=== PATIENT | male | born 1995 | race Hispanic/Latino ===

== ENCOUNTER 2017-06-19 11:29 | Emergency (ER) | payer SELFPAY ==
[2017-06-19] MEDS: methylPREDNISolone INJ 125 MG/2 ML VIAL (J2930) IV (12:15)
[2017-06-19] MEDS: IPRATROPIUM 0.5MG/ALBUTEROL 2.5MG INH SOL UD 3ML (DUONEB)(J7620) NEB (12:57)
[2017-06-19] MEDS: ALBUTEROL SULFATE 2.5 MG/0.5 ML INH NEB SOLN NEB (12:57)
[2017-06-19 13:07] LABS: BASO % 0.1 % (0.0-1.0); EOS % 0.6 % (0.0-3.0); HEMATOCRIT 38.9 % (42.0-52.0); HEMOGLOBIN 12.5 g/dl (14.0-18.0); IMMATURE GRANULOCYTE % 0.1 % (0-0); LYMPH # 1.3 10^3/uL (1.5-6.5); LYMPH % 18.5 % (24.0-44.0); MEAN CORPUSCULAR HEMOGLOBIN 27.1 pg (27.0-33.0); MEAN CORPUSCULAR HGB CONC 32.1 g/dl (32.0-36.5); MEAN CORPUSCULAR VOLUME 84.2 fl (80.0-96.0); MONO # 1.4 10^3/uL (0.0-0.8); MONO % 19.7 % (0.0-5.0); NEUTROPHILS # 4.3 10^3/uL (1.8-7.7); PLATELET COUNT, AUTOMATED 267 10^3/uL (150-450); RED BLOOD COUNT 4.62 10^6/uL (4.30-6.10); RED CELL DISTRIBUTION WIDTH 13.7 % (11.5-14.5); WHITE BLOOD COUNT 7.1 10^3/uL (4.0-10.0)
[2017-06-19] MEDS: ALBUTEROL 90 MCG/ACT 8GM HFA INHALER INH (13:15)
[2017-06-19 13:17] LABS: ANION GAP 7 MEQ/L (8-16); BLOOD UREA NITROGEN 8 MG/DL (7-18); CALCIUM LEVEL 8.7 MG/DL (8.5-10.1); CARBON DIOXIDE LEVEL 27 MEQ/L (21-32); CHLORIDE LEVEL 106 MEQ/L (98-107); CREATININE FOR GFR 0.96 MG/DL (0.70-1.30); GLUCOSE, FASTING 92 MG/DL (70-100); POTASSIUM SERUM 3.8 MEQ/L (3.5-5.1); SODIUM LEVEL 140 MEQ/L (136-145)
[2017-06-19 13:48] LABS: INFLUENZA A AMPLIFICATION POSITIVE (NEGATIVE); INFLUENZA B AMPLIFICATION NEGATIVE (NEGATIVE)
== END 2017-06-19 14:21 | disposition home or self-care (01) ==
LOC: M ED 11:29
DX: J10.1 Influenza due to other identified influenza virus with other respiratory manifestations (principal); J45.901 Unspecified asthma with (acute) exacerbation; B34.9 Viral infection, unspecified; I10 Essential (primary) hypertension
CPT/HCPCS: J2930

== ENCOUNTER 2019-05-14 16:06 | Emergency (ER) | payer SELFPAY ==
[~2019-05-14] VITALS: Ht 167.6 cm; Wt 165.0 kg
[~2019-05-14 16:06] MED LIST: ALBU83IN INH; OMEP-172 PO; PRED10TA2 PO; PROAAER10 INH
[2019-05-14] MEDS ORDERED: ALBUTEROL SULFATE 2.5 MG/0.5 ML INH NEB SOLN NEB ONE ×2 (17:00→17:45)
[2019-05-14 17:12] LABS: INFLUENZA A AMPLIFICATION NEGATIVE (NEGATIVE); INFLUENZA B AMPLIFICATION POSITIVE (NEGATIVE)
[2019-05-14] MEDS ORDERED: OSELTAMIVIR PHOSPHATE 75 MG CAP (TAMIFLU) PO ONE (17:45)
[2019-05-14] MEDS ORDERED: predniSONE 20 MG TAB PO ONE (17:45)
[2019-05-14] MEDS ORDERED: ONDANSETRON 4 MG ORAL DISINTEGRATING TAB (Q0162 PER 1MG) PO ONE (17:45)
[2019-05-14] MEDS ORDERED: IBUPROFEN 600 MG TAB PO ONE (17:45)
[2019-05-14] MEDS ORDERED: OSEL75CA PO (18:14)
[2019-05-14] MEDS ORDERED: ALBU83IN NEB (18:14)
[2019-05-14] MEDS ORDERED: PRED20TA PO (18:14)
[2019-05-14] MEDS ORDERED: ONDA4TAB6 PO (18:14)
[2019-05-14 18:34] VITALS: BP 112/55
--- NOTE | 2019-05-14 21:10 | ECGEPIP ---
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
== END 2019-05-14 18:36 | disposition home or self-care (01) ==
LOC: M ED 16:06
DX: J10.1 Influenza due to other identified influenza virus with other respiratory manifestations (principal); R06.02 Shortness of breath; R06.2 Wheezing; R07.89 Other chest pain; R00.0 Tachycardia, unspecified; J45.909 Unspecified asthma, uncomplicated; F12.10 Cannabis abuse, uncomplicated
CPT/HCPCS: 87502; 93005; 99284; Q0162

== ENCOUNTER → 2020-04-30 | Outpatient (CLI) | payer SELFPAY ==
[~2020-04-30] MED LIST changes: +ALBU83IN NEB; -OMEP-172 PO; +OMEP1CAP73 PO; +ONDA4TAB6 PO; +OSEL75CA PO; +PRED20TA PO
== END ==
LOC: M LABSMTC 10:22
PROVIDERS: ATTEND Pediatrics
DX: Z20.828 Contact with and (suspected) exposure to other viral communicable diseases (principal)

== ENCOUNTER → 2020-08-10 | Outpatient (REF) | payer OTHER, SELFPAY ==
[2020-08-10 17:21] LABS: BASO % 0.5 % (0.0-1.0); EOS # 0.5 10^3/uL (0.0-0.5); EOS % 5.2 % (0.0-3.0); HEMOGLOBIN 13.3 g/dl (13.5-17.5); LYMPH # 2.2 10^3/uL (1.5-5.0); LYMPH % 25.1 % (24.0-44.0); MEAN CORPUSCULAR HEMOGLOBIN 27.2 pg (27.0-33.0); MEAN CORPUSCULAR HGB CONC 30.9 g/dl (32.0-36.5); MEAN CORPUSCULAR VOLUME 87.9 fl (80.0-96.0); MONO % 10.8 % (2.0-8.0); NEUTROPHILS # 5.1 10^3/uL (1.5-8.5); NEUTROPHILS % 58.2 % (36.0-66.0); PLATELET COUNT, AUTOMATED 310 10^3/uL (150-450); RED BLOOD COUNT 4.89 10^6/uL (4.30-6.10); WHITE BLOOD COUNT 8.8 10^3/uL (4.0-10.0)
[2020-08-10 17:36] LABS: HEMOGLOBIN A1c 5.6 %
[2020-08-10 17:55] LABS: ALBUMIN 3.6 GM/DL (3.2-5.2); ALT/SGPT 30 U/L (12-78); BILIRUBIN,TOTAL 0.2 MG/DL (0.2-1.0); BLOOD UREA NITROGEN 12 MG/DL (7-18); CALCIUM LEVEL 9.4 MG/DL (8.5-10.1); CARBON DIOXIDE LEVEL 29 MEQ/L (21-32); CHLORIDE LEVEL 107 MEQ/L (98-107); CHOLESTEROL LEVEL 200 MG/DL (<200); CHOLESTEROL RISK RATIO 6.666 (<5); GLOMERULAR FILTRATION RATE > 60.0 (>60); GLUCOSE, FASTING 103 MG/DL (70-100); HDL CHOLESTEROL 30 MG/DL (>40); LDL CHOLESTEROL 122 MG/DL (<100); NON-HDL-C 170 MG/DL; POTASSIUM SERUM 5.1 MEQ/L (3.5-5.1); SODIUM LEVEL 139 MEQ/L (136-145); TOTAL PROTEIN 8.1 GM/DL (6.4-8.2); TRIGLYCERIDES LEVEL 240 MG/DL (<150)
[2020-08-10 17:57] LABS: TOTAL 25(OH) VITAMIN D 9.3 NG/ML (30.0-100.0)
[2020-08-10 18:37] LABS: HEPATITIS C VIRUS ABY INDEX < 0.0 INDEX (<0.8); HIV 1&2 SCREEN CENTAUR NEGATIVE (NEGATIVE)
== END ==
LOC: M LAB REF 16:41
PROVIDERS: ATTEND Nurse Practitioner Family
DX: E66.01 Morbid (severe) obesity due to excess calories (principal); Z13.29 Encounter for screening for other suspected endocrine disorder; Z13.228 Encounter for screening for other metabolic disorders; J45.909 Unspecified asthma, uncomplicated

== ENCOUNTER → 2020-09-06 | Outpatient (REF) | payer OTHER | LOC: M LAB REF 16:13 | PROVIDERS: ATTEND Surgery | DX: L72.3 Sebaceous cyst (principal) ==

== ENCOUNTER 2020-12-28 11:28 | Emergency (ER) | payer OTHER, SELFPAY ==
[~2020-12-28] VITALS: Ht 167.6 cm; Wt 173.5 kg
[2020-12-28 11:38] VITALS: BP 147/79
== END 2020-12-28 15:07 | disposition left against medical advice (07) ==
LOC: M ED 11:28
DX: Z53.21 Procedure and treatment not carried out due to patient leaving prior to being seen by health care provider (principal)

== ENCOUNTER 2021-09-30 03:45 | Emergency (ER) | payer MEDICAID, SELFPAY ==
[~2021-09-30] VITALS: Ht 165.1 cm; Wt 170.8 kg
[2021-09-30] MEDS ORDERED: MORPHINE 4 MG/ML 1ML VIAL/SYRINGE As Ordered ONE (04:06)
[2021-09-30] MEDS: MORPHINE 4 MG/ML 1ML VIAL/SYRINGE IV ONE (04:10)
[2021-09-30 04:15] LABS: ABG BASE EXCESS -0.5 (-2.0-2.0); ABG HCO3 23.3 MEQ/L (22.0-26.0); ABG O2 SATURATION 96.5 % (95.0-99.0); ABG PARTIAL PRESSURE CO2 35.9 mmHg (35.0-45.0); ABG TOTAL CO2 24.4 MEQ/L (22.0-29.0); ABG pH (ARTERIAL) 7.431 UNITS (7.350-7.450)
[2021-09-30] MEDS: HYDROMORPHONE HCL 0.5 MG/ 0.5 ML SYRINGE (J1170 PER 1) IV ONE ×2 (04:25→05:45)
[2021-09-30 04:29] LABS: BASO # 0.1 10^3/uL (0.0-0.2); BASO % 0.2 % (0.0-1.0); EOS # 0.3 10^3/uL (0.0-0.5); EOS % 1.1 % (0.0-3.0); HEMATOCRIT 38.6 % (42.0-52.0); HEMOGLOBIN 12.5 g/dl (13.5-17.5); LYMPH # 3.5 10^3/uL (1.5-5.0); LYMPH % 14.4 % (24.0-44.0); MEAN CORPUSCULAR HEMOGLOBIN 27.2 pg (27.0-33.0); MEAN CORPUSCULAR HGB CONC 32.4 g/dl (32.0-36.5); MEAN CORPUSCULAR VOLUME 84.1 fl (80.0-96.0); MONO % 7.1 % (2.0-8.0); NEUTROPHILS # 18.8 10^3/uL (1.5-8.5); NEUTROPHILS % 76.8 % (36.0-66.0); PLATELET COUNT, AUTOMATED 369 10^3/uL (150-450); RED BLOOD COUNT 4.59 10^6/uL (4.30-6.10); WHITE BLOOD COUNT 24.5 10^3/uL (4.0-10.0)
[2021-09-30 04:42] LABS: INR 1.01; PROTHROMBIN TIME 13.7 SECONDS (12.7-14.5)
[2021-09-30 04:44] LABS: MONO # 1.8 10^3/uL (0.0-0.8)
[2021-09-30 04:53] LABS: CK-MB VALUE MASS < 1.0 NG/ML (<3.6); CPK CREATINE PHOSPHOKINASE 171 U/L (39-308); MB/CK RELATIVE INDEX 0.58 (< OR =4)
[2021-09-30 04:58] LABS: ALBUMIN 3.7 GM/DL (3.2-5.2); ALT/SGPT 32 U/L (12-78); AMYLASE 61 U/L (25-115); BILIRUBIN,DIRECT 0.1 MG/DL (0.0-0.2); BILIRUBIN,TOTAL 0.3 MG/DL (0.2-1.0); BLOOD UREA NITROGEN 13 MG/DL (7-18); CALCIUM LEVEL 8.9 MG/DL (8.5-10.1); CARBON DIOXIDE LEVEL 25 MEQ/L (21-32); CHLORIDE LEVEL 109 MEQ/L (98-107); CREATININE FOR GFR 1.08 MG/DL (0.70-1.30); GLOMERULAR FILTRATION RATE > 60.0 (>60); GLUCOSE, FASTING 116 MG/DL (70-100); LIPASE 90 U/L (73-393); NT-PRO BNP 19 PG/ML (<125); POTASSIUM SERUM 4.3 MEQ/L (3.5-5.1); SODIUM LEVEL 139 MEQ/L (136-145); TOTAL PROTEIN 8.3 GM/DL (6.4-8.2)
[2021-09-30] MEDS ORDERED: ISOVUE-370 76% 100ML VIAL As Ordered ONE (05:18)
[2021-09-30] MEDS: ACETAMINOPHEN 500 MG TAB PO ONE (05:45)
[2021-09-30 07:15] VITALS: BP 145/63
[2021-09-30] MEDS ORDERED: DOXY-342 PO (07:18)
[2021-09-30] MEDS: DOXYCYCLINE HYCLATE 100MG TABLET PO ONE (07:20)
== END 2021-09-30 07:45 | disposition home or self-care (01) ==
LOC: M ED 03:45
DX: J18.1 Lobar pneumonia, unspecified organism (principal); F17.290 Nicotine dependence, other tobacco product, uncomplicated
CPT/HCPCS: 36600; 71045; 71275; 74177; 80048; 80076; 82150; 82550; 82553; 82803; 83605; 83690; 83880; 85025; 85610; 87040; 87486; 87581; 87633; 87798; 93005; 93041; 96374; 96375; 96376; 99285; J1170; J2270; Q9967

== ENCOUNTER 2021-11-20 03:06 | Emergency (ER) | payer OTHER ==
[~2021-11-20] VITALS: Ht 165.1 cm; Wt 154.6 kg
[~2021-11-20 03:06] MED LIST changes: +ALBU2.5V10 INH; +ALBU2.5V10 NEB; -ALBU83IN INH; -ALBU83IN NEB; +DOXY-342 PO
[2021-11-20] MEDS ORDERED: ALBU8.5H (03:19)
[2021-11-20 03:39] LABS: BASO # 0.1 10^3/uL (0.0-0.2); BASO % 0.3 % (0.0-1.0); EOS # 0.2 10^3/uL (0.0-0.5); HEMATOCRIT 40.5 % (42.0-52.0); HEMOGLOBIN 12.9 g/dl (13.5-17.5); LYMPH # 2.8 10^3/uL (1.5-5.0); LYMPH % 16.3 % (24.0-44.0); MEAN CORPUSCULAR HEMOGLOBIN 27.6 pg (27.0-33.0); MEAN CORPUSCULAR HGB CONC 31.9 g/dl (32.0-36.5); MEAN CORPUSCULAR VOLUME 86.5 fl (80.0-96.0); MONO # 1.2 10^3/uL (0.0-0.8); MONO % 7.2 % (2.0-8.0); NEUTROPHILS # 12.6 10^3/uL (1.5-8.5); NEUTROPHILS % 74.7 % (36.0-66.0); PLATELET COUNT, AUTOMATED 383 10^3/uL (150-450); RED BLOOD COUNT 4.68 10^6/uL (4.30-6.10); WHITE BLOOD COUNT 16.9 10^3/uL (4.0-10.0)
[2021-11-20 03:51] LABS: ALBUMIN 3.7 GM/DL (3.2-5.2); ALT/SGPT 173 U/L (12-78); BILIRUBIN,DIRECT < 0.1 MG/DL (0.0-0.2); BILIRUBIN,TOTAL 0.3 MG/DL (0.2-1.0); BLOOD UREA NITROGEN 12 MG/DL (7-18); CALCIUM LEVEL 9.3 MG/DL (8.5-10.1); CARBON DIOXIDE LEVEL 23 MEQ/L (21-32); CHLORIDE LEVEL 109 MEQ/L (98-107); CREATININE FOR GFR 1.29 MG/DL (0.70-1.30); GLOMERULAR FILTRATION RATE > 60.0 (>60); GLUCOSE, FASTING 121 MG/DL (70-100); SODIUM LEVEL 143 MEQ/L (136-145); TOTAL PROTEIN 8.5 GM/DL (6.4-8.2)
[2021-11-20 03:52] LABS: ABG BASE EXCESS -0.9 (-2.0-2.0); ABG HCO3 24.9 MEQ/L (22.0-26.0); ABG PARTIAL PRESSURE CO2 45.6 mmHg (35.0-45.0); ABG STANDARD HCO3 23.7 MEQ/L (22.0-26.0); ABG TOTAL CO2 26.3 MEQ/L (22.0-29.0); ABG pH (ARTERIAL) 7.355 UNITS (7.350-7.450)
[2021-11-20 04:08] LABS: CK-MB VALUE MASS < 1.0 NG/ML (<3.6); CPK CREATINE PHOSPHOKINASE 193 U/L (39-308); MB/CK RELATIVE INDEX 0.52 (< OR =4)
[2021-11-20] MEDS ORDERED: ISOVUE-370 76% 100ML VIAL As Ordered ONE (04:46)
[2021-11-20 07:15] VITALS: BP 115/60
[2021-11-20] MEDS ORDERED: PRED20TA PO (07:33)
== END 2021-11-20 07:52 | disposition home or self-care (01) ==
LOC: EDBD 03:06 → M ED 03:06
DX: R06.02 Shortness of breath (principal); J45.909 Unspecified asthma, uncomplicated
CPT/HCPCS: 36600; 71045; 71275; 80048; 80076; 82550; 82553; 82803; 83605; 85025; 87486; 87581; 87633; 87798; 93005; 93041; 94760; 99285; Q9967

== ENCOUNTER → 2022-03-28 | Outpatient (REF) | payer OTHER, MEDICAID ==
[~2022-03-28] MED LIST changes: +ALBU8.5H; -DOXY-342 PO; +DOXY100C81 PO
[2022-03-28 17:38] LABS: BASO % 0.4 % (0.0-1.0); EOS # 0.3 10^3/uL (0.0-0.5); HEMATOCRIT 41.2 % (42.0-52.0); HEMOGLOBIN 12.9 g/dl (13.5-17.5); LYMPH # 2.3 10^3/uL (1.5-5.0); LYMPH % 22.7 % (24.0-44.0); MEAN CORPUSCULAR HEMOGLOBIN 26.9 pg (27.0-33.0); MEAN CORPUSCULAR HGB CONC 31.3 g/dl (32.0-36.5); MEAN CORPUSCULAR VOLUME 85.8 fl (80.0-96.0); MONO # 0.9 10^3/uL (0.0-0.8); MONO % 8.6 % (2.0-8.0); NEUTROPHILS # 6.6 10^3/uL (1.5-8.5); PLATELET COUNT, AUTOMATED 364 10^3/uL (150-450); WHITE BLOOD COUNT 10.2 10^3/uL (4.0-10.0)
[2022-03-28 18:29] LABS: ALBUMIN 3.5 GM/DL (3.2-5.2); ALT/SGPT 37 U/L (12-78); BILIRUBIN,TOTAL 0.2 MG/DL (0.2-1.0); BLOOD UREA NITROGEN 9 MG/DL (7-18); CALCIUM LEVEL 9.3 MG/DL (8.5-10.1); CARBON DIOXIDE LEVEL 28 MEQ/L (21-32); CHLORIDE LEVEL 105 MEQ/L (98-107); CHOLESTEROL LEVEL 173 MG/DL (<200); CREATININE FOR GFR 0.96 MG/DL (0.70-1.30); GLOMERULAR FILTRATION RATE > 60.0 (>60); GLUCOSE, FASTING 96 MG/DL (70-100); HDL CHOLESTEROL 25 MG/DL (>40); LDL CHOLESTEROL 99 MG/DL (<100); NON-HDL-C 148 MG/DL; POTASSIUM SERUM 4.8 MEQ/L (3.5-5.1); SODIUM LEVEL 137 MEQ/L (136-145); TOTAL PROTEIN 8.3 GM/DL (6.4-8.2); TRIGLYCERIDES LEVEL 244 MG/DL (<150)
[2022-03-28 18:59] LABS: TOTAL 25(OH) VITAMIN D 10.9 NG/ML (30.0-100.0)
== END ==
LOC: M LAB REF 16:39
PROVIDERS: ATTEND Nurse Practitioner Family
DX: E66.01 Morbid (severe) obesity due to excess calories (principal)

== ENCOUNTER → 2022-06-27 | Outpatient (REF) | payer OTHER ==
[2022-06-27 18:14] LABS: CHOLESTEROL RISK RATIO 5.93 (<5); HDL CHOLESTEROL 29.8 MG/DL (>40)
[2022-06-27 18:39] LABS: HEMOGLOBIN A1c 5.7 % (4.0-6.0)
== END ==
LOC: M LAB REF 16:37
PROVIDERS: ATTEND Nurse Practitioner Family
DX: Z13.228 Encounter for screening for other metabolic disorders (principal); R79.89 Other specified abnormal findings of blood chemistry

== ENCOUNTER → 2022-07-06 | Outpatient (CLI) | payer OTHER | LOC: M SLEEP 20:00 | PROVIDERS: ATTEND Internal Medicine Pulmonary Disease | DX: G47.33 Obstructive sleep apnea (adult) (pediatric) (principal) ==

== ENCOUNTER → 2022-07-16 | Outpatient (CLI) | payer OTHER ==
[2022-07-16 14:29] LABS: BASO % 0.3 % (0.0-1.0); EOS # 0.5 10^3/uL (0.0-0.5); EOS % 5.2 % (0.0-3.0); HEMOGLOBIN 13.6 g/dl (13.5-17.5); LYMPH # 2.3 10^3/uL (1.5-5.0); LYMPH % 25.8 % (24.0-44.0); MEAN CORPUSCULAR HEMOGLOBIN 26.8 pg (27.0-33.0); MEAN CORPUSCULAR HGB CONC 30.9 g/dl (32.0-36.5); MEAN CORPUSCULAR VOLUME 86.6 fl (80.0-96.0); MONO # 0.7 10^3/uL (0.0-0.8); MONO % 8.1 % (2.0-8.0); NEUTROPHILS # 5.5 10^3/uL (1.5-8.5); NEUTROPHILS % 60.4 % (36.0-66.0); PLATELET COUNT, AUTOMATED 363 10^3/uL (150-450); RED BLOOD COUNT 5.08 10^6/uL (4.30-6.10); WHITE BLOOD COUNT 9.1 10^3/uL (4.0-10.0)
== END ==
LOC: M LAB 13:36
PROVIDERS: ATTEND Internal Medicine Pulmonary Disease
DX: J45.40 Moderate persistent asthma, uncomplicated (principal)

== ENCOUNTER → 2022-10-03 | Outpatient (REF) | payer OTHER ==
[2022-10-03 17:15] LABS: BASO % 0.3 % (0.0-1.0); EOS # 0.4 10^3/uL (0.0-0.5); EOS % 3.6 % (0.0-3.0); HEMATOCRIT 43.5 % (42.0-52.0); HEMOGLOBIN 13.4 g/dl (13.5-17.5); LYMPH # 2.7 10^3/uL (1.5-5.0); LYMPH % 26.4 % (24.0-44.0); MEAN CORPUSCULAR HEMOGLOBIN 26.9 pg (27.0-33.0); MEAN CORPUSCULAR HGB CONC 30.8 g/dl (32.0-36.5); MEAN CORPUSCULAR VOLUME 87.3 fl (80.0-96.0); MONO % 9.5 % (2.0-8.0); NEUTROPHILS % 59.9 % (36.0-66.0); PLATELET COUNT, AUTOMATED 364 10^3/uL (150-450); RED BLOOD COUNT 4.98 10^6/uL (4.30-6.10)
[2022-10-03 17:40] LABS: URIC ACID 9.7 MG/DL (3.7-9.2)
[2022-10-03 17:43] LABS: CHOLESTEROL RISK RATIO 7.14 (<5); HDL CHOLESTEROL 24.2 MG/DL (>40); NON-HDL-C 148.8 MG/DL
== END ==
LOC: M LAB REF 16:31
PROVIDERS: ATTEND Nurse Practitioner Family
DX: M10.9 Gout, unspecified (principal); R79.89 Other specified abnormal findings of blood chemistry

== ENCOUNTER 2023-09-20 11:35 | Inpatient (IN) | payer OTHER ==
[~2023-09-20] VITALS: Ht 167.6 cm; Wt 165.6 kg
[~2023-09-20 11:35] MED LIST changes: -ALBU8.5H; +ALBU8.5H INH; -DOXY100C81 PO; +DOXY100C82 PO
[2023-09-20 12:29] LABS: BASO % 0.3 % (0.0-1.0); EOS # 0.1 10^3/uL (0.0-0.5); EOS % 1.2 % (0.0-3.0); HEMOGLOBIN 13.9 g/dl (13.5-17.5); LYMPH # 1.2 10^3/uL (1.5-5.0); LYMPH % 10.3 % (24.0-44.0); MEAN CORPUSCULAR HEMOGLOBIN 27.6 pg (27.0-33.0); MEAN CORPUSCULAR HGB CONC 33.1 g/dl (32.0-36.5); MEAN CORPUSCULAR VOLUME 83.5 fl (80.0-96.0); MONO # 1.8 10^3/uL (0.0-0.8); MONO % 15.7 % (2.0-8.0); NEUTROPHILS # 8.1 10^3/uL (1.5-8.5); NEUTROPHILS % 72.2 % (36.0-66.0); PLATELET COUNT, AUTOMATED 338 10^3/uL (150-450); RED BLOOD COUNT 5.03 10^6/uL (4.30-6.10); WHITE BLOOD COUNT 11.2 10^3/uL (4.0-10.0)
[2023-09-20 12:52] LABS: CK-MB VALUE MASS < 1.0 NG/ML (<3.6)
[2023-09-20 12:54] LABS: ALBUMIN 3.8 G/DL (3.2-5.2); ALKALINE PHOSPHATASE 94 U/L (46-116); ALT/SGPT 19 U/L (7.0-40); AST/SGOT 10 U/L (<34); BILIRUBIN,DIRECT 0.2 MG/DL (<0.4); BILIRUBIN,TOTAL 0.7 MG/DL (0.3-1.2); BLOOD UREA NITROGEN 10 MG/DL (9-23); CALCIUM LEVEL 9.6 MG/DL (8.5-10.1); CARBON DIOXIDE LEVEL 25 MMOL/L (20-31); CHLORIDE LEVEL 105 MMOL/L (98-107); CREATININE FOR GFR 0.93 MG/DL (0.70-1.30); GLOMERULAR FILTRATION RATE > 60.0 (>60); GLUCOSE, FASTING 107 MG/DL (60-100); POTASSIUM SERUM 3.8 MMOL/L (3.5-5.1); SODIUM LEVEL 139 MMOL/L (136-145); TOTAL PROTEIN 8.9 G/DL (5.7-8.2)
[2023-09-20 12:55] LABS: CPK CREATINE PHOSPHOKINASE 97 U/L (46-171); MB/CK RELATIVE INDEX 1.03 (< OR =4)
[2023-09-20 13:02] LABS: INR 1.18; PROTHROMBIN TIME 14.7 SECONDS (12.5-14.5)
[2023-09-20] MEDS: IPRATROPIUM 0.5MG/ALBUTEROL 2.5MG INH SOL UD 3ML (DUONEB) NEB PRN (13:03)
[2023-09-20 13:05] LABS: ABG BASE EXCESS -0.3 (-2.0-2.0); ABG HCO3 22.5 MMOL/L (22.0-26.0); ABG O2 SATURATION 93.6 % (95.0-99.0); ABG PARTIAL PRESSURE CO2 32.2 mmHg (35.0-45.0); ABG PARTIAL PRESSURE O2 65.7 mmHg (75.0-100.0); ABG STANDARD HCO3 24.1 MMOL/L. (22.0-26.0); ABG TOTAL CO2 23.5 MMOL/L (22.0-29.0); ABG pH (ARTERIAL) 7.463 UNITS (7.350-7.450)
[2023-09-20] MEDS ORDERED: ISOVUE-370 76% 100ML VIAL As Ordered ONE (13:08)
[2023-09-20 14:27] LABS: CK-MB VALUE MASS < 1.0 NG/ML (<3.6)
[2023-09-20 14:29] LABS: CPK CREATINE PHOSPHOKINASE 95 U/L (46-171); MB/CK RELATIVE INDEX 1.05 (< OR =4)
[2023-09-20] MEDS ORDERED: AUGMENTIN 875 MG TAB PO ONE (15:15)
[2023-09-20 15:23] LABS: PARTIAL THROMBOPLASTIN TIME 34.2 SECONDS (24.8-34.2)
[2023-09-20] MEDS ORDERED: HOME MED LIST COMPLETE! XX SCH (15:25)
[2023-09-20] MEDS ORDERED: ALBU2.5V10 INH (15:25)
[2023-09-20] MEDS ORDERED: ONDANSETRON 4MG 2ML VIAL IV PRN (16:00)
[2023-09-20] MEDS ORDERED: ACETAMINOPHEN TAB 650MG DOSE (2X325MG) PO PRN (16:00)
[2023-09-20] MEDS: APIXABAN 5 MG TAB (ELIQUIS) PO SCH (16:22)
[2023-09-20] MEDS: MONTELUKAST 10 MG TAB PO ONE (16:22)
[2023-09-20] MEDS: cefTRIAXone SOD 2 GM in D5W MINI-BAG PLUS 50 ML IV SCH (16:23)
[2023-09-20] MEDS: methylPREDNISolone 125MG 2ML VIAL IV ONE (16:23)
[2023-09-20] MEDS: LEVALBUTEROL 1.25MG 0.5ML CONCENTRATE NEB INH SCH (16:28)
[2023-09-20 17:04] LABS: MONO SCRN NEGATIVE (NEGATIVE)
[2023-09-20 17:50] VITALS: BP 161/85; TEMP 97.3; O2SAT 90
[2023-09-20] MEDS: FLUTICASONE PROP 0.05% NASAL SPRAY 16 GM (FLONASE) NARES SCH (18:07)
[2023-09-20] MEDS: OXYMETAZOLINE 0.05% NASAL SPRAY (AFRIN) SCH (18:07)
[2023-09-20] MEDS: FLUTICASONE HFA 110MCG 12GM INHALER (FLOVENT) INH SCH (19:06)
[2023-09-20 19:45] VITALS: BP 156/96; TEMP 97.1; O2SAT 95
[2023-09-20] MEDS: CHLORASEPTIC SPRAY MT SCH (20:26)
[2023-09-20] MEDS: methylPREDNISolone 125MG 2ML VIAL IV SCH (20:27)
[2023-09-20] MEDS: guaiFENesin ER TABLET 600 MG TAB PO SCH (20:27)
[2023-09-20 23:42] VITALS: BP 138/97; TEMP 97.9; O2SAT 93
[2023-09-21] MEDS: LEVALBUTEROL 1.25MG 0.5ML CONCENTRATE NEB INH PRN (01:49)
[2023-09-21] MEDS: CALCIUM CARBONATE 500 MG CHEW U/D PO ONE (03:30)
[2023-09-21 03:39] VITALS: BP 143/81; TEMP 97.9; O2SAT 94
[2023-09-21 05:12] LABS: CHOLESTEROL RISK RATIO 7.36 (<5); HDL CHOLESTEROL 28.1 MG/DL (>40); LDL CHOLESTEROL 159.9 MG/DL (<100); NON-HDL-C 178.9 MG/DL
[2023-09-21 05:15] LABS: THYROID STIMULATING HORMONE 1.19 uIU/ML (0.55-4.78)
[2023-09-21 05:20] LABS: THYROXINE (T4) 10.9 UG/DL (4.5-10.9)
[2023-09-21 05:21] LABS: FREE THYROXINE INDEX 4.1 % (1.4-3.8); T UPTAKE 37.5 % (22.5-37.0)
[2023-09-21 05:44] LABS: HEMOGLOBIN A1c 5.2 % (4.0-6.0)
[2023-09-21 06:44] VITALS: BP 153/98; TEMP 97.5; O2SAT 92
[2023-09-21 07:38] VITALS: BP 128/77; TEMP 97.6; O2SAT 95
[2023-09-21] MEDS ORDERED: MAALOX 30 ML SUSP *UDC PO PRN (08:10)
[2023-09-21] MEDS: SUCRALFATE SUSP 1GM/10ML UD PO SCH (09:01)
[2023-09-21] MEDS: OMEPRAZOLE 20MG CAP PO SCH (09:01)
[2023-09-21] MEDS: MAALOX 30 ML SUSP *UDC PO ONE (09:02)
[2023-09-21] MEDS: MONTELUKAST 10 MG TAB PO SCH (09:02)
[2023-09-21] MEDS: methylPREDNISolone 125MG 2ML VIAL IV ONE (12:39)
[2023-09-21 16:18] VITALS: BP 143/69; TEMP 98; O2SAT 92
[2023-09-21 19:49] VITALS: BP 159/94; TEMP 98.1; O2SAT 94
[2023-09-21] MEDS: predniSONE 20 MG TAB PO SCH (20:21)
[2023-09-22 03:57] VITALS: BP 136/77; TEMP 98.3; O2SAT 96
[2023-09-22 07:47] VITALS: BP 158/87; TEMP 97.8; O2SAT 98
[2023-09-22] MEDS: methylPREDNISolone 125MG 2ML VIAL IV ONE (08:49)
[2023-09-22] MEDS: IPRATROPIUM 0.5MG/ALBUTEROL 2.5MG INH SOL UD 3ML (DUONEB) NEB ONE (10:35)
[2023-09-22] MEDS ORDERED: MOM 30ML SUSPENSION UDC PO PRN (10:55)
[2023-09-22] MEDS ORDERED: FLEET ENEMA PR PRN (10:55)
[2023-09-22] MEDS ORDERED: SENOKOT S TAB PO PRN (10:55)
[2023-09-22] MEDS: SENOKOT S TAB PO ONE (11:09)
[2023-09-22] MEDS: MIRALAX *UNIT DOSE* 17GM PACKET PO SCH (11:09)
[2023-09-22] MEDS: MOM 30ML SUSPENSION UDC PO SCH (11:09)
[2023-09-22] MEDS: methylPREDNISolone 125MG 2ML VIAL IV SCH (15:01)
[2023-09-22 16:00] VITALS: BP 137/69; TEMP 98.2; O2SAT 95
[2023-09-22 19:35] VITALS: BP 141/81; TEMP 98.1; O2SAT 96
[2023-09-22] MEDS ORDERED: CHLORASEPTIC SPRAY MT PRN (21:00)
[2023-09-22 23:19] VITALS: BP 141/85; TEMP 97.8; O2SAT 100
[2023-09-23 03:32] VITALS: BP 127/69; TEMP 97.2; O2SAT 100
[2023-09-23 07:09] VITALS: BP 140/81; TEMP 97; O2SAT 95
[2023-09-23 12:10] VITALS: BP 138/83; TEMP 98.3; O2SAT 92
[2023-09-23] MEDS: CEFDINIR 300 MG CAP (OMNICEF) PO SCH (13:51)
[2023-09-23 18:54] VITALS: BP 144/74; TEMP 98.5; O2SAT 92
[2023-09-24 03:56] VITALS: BP 140/84; TEMP 96.8; O2SAT 100
[2023-09-24 07:55] VITALS: BP 147/82; TEMP 97; O2SAT 95
[2023-09-24 08:13] LABS: BASO % 0.2 % (0.0-1.0); HEMATOCRIT 43.5 % (42.0-52.0); HEMOGLOBIN 14.2 g/dl (13.5-17.5); LYMPH # 1.5 10^3/uL (1.5-5.0); LYMPH % 8.3 % (24.0-44.0); MEAN CORPUSCULAR HEMOGLOBIN 27.7 pg (27.0-33.0); MEAN CORPUSCULAR HGB CONC 32.6 g/dl (32.0-36.5); MEAN CORPUSCULAR VOLUME 84.8 fl (80.0-96.0); MONO # 1.3 10^3/uL (0.0-0.8); MONO % 7.1 % (2.0-8.0); NEUTROPHILS # 15.6 10^3/uL (1.5-8.5); NEUTROPHILS % 83.7 % (36.0-66.0); PLATELET COUNT, AUTOMATED 356 10^3/uL (150-450); RED BLOOD COUNT 5.13 10^6/uL (4.30-6.10); WHITE BLOOD COUNT 18.6 10^3/uL (4.0-10.0)
[2023-09-24 08:41] LABS: BLOOD UREA NITROGEN 19 MG/DL (9-23); CALCIUM LEVEL 9.2 MG/DL (8.5-10.1); CARBON DIOXIDE LEVEL 25 MMOL/L (20-31); CHLORIDE LEVEL 106 MMOL/L (98-107); CREATININE FOR GFR 0.89 MG/DL (0.70-1.30); GLOMERULAR FILTRATION RATE > 60.0 (>60); GLUCOSE, FASTING 181 MG/DL (60-100); MAGNESIUM LEVEL 2.2 MG/DL (1.8-2.4); PHOSPHORUS LEVEL 3.7 MG/DL (2.5-4.9); POTASSIUM SERUM 4.7 MMOL/L (3.5-5.1); SODIUM LEVEL 139 MMOL/L (136-145)
[2023-09-24 16:03] VITALS: BP 148/90; TEMP 97.5; O2SAT 98
[2023-09-24] MEDS: methylPREDNISolone 40MG 1ML VIAL IV SCH (16:42)
[2023-09-24 19:46] VITALS: BP 160/82; TEMP 98.5; O2SAT 96
[2023-09-24 20:40] VITALS: BP 149/91; TEMP 98.1; O2SAT 97
[2023-09-25 00:30] VITALS: O2SAT 96
[2023-09-25 06:17] LABS: BASO % 0.2 % (0.0-1.0); HEMATOCRIT 42.3 % (42.0-52.0); HEMOGLOBIN 13.9 g/dl (13.5-17.5); LYMPH # 1.6 10^3/uL (1.5-5.0); LYMPH % 8.7 % (24.0-44.0); MEAN CORPUSCULAR HEMOGLOBIN 27.4 pg (27.0-33.0); MEAN CORPUSCULAR HGB CONC 32.9 g/dl (32.0-36.5); MEAN CORPUSCULAR VOLUME 83.3 fl (80.0-96.0); MONO # 1.3 10^3/uL (0.0-0.8); MONO % 7.1 % (2.0-8.0); NEUTROPHILS % 82.8 % (36.0-66.0); PLATELET COUNT, AUTOMATED 353 10^3/uL (150-450); RED BLOOD COUNT 5.08 10^6/uL (4.30-6.10); WHITE BLOOD COUNT 18.1 10^3/uL (4.0-10.0)
[2023-09-25 06:36] VITALS: BP 147/82; TEMP 98.2; O2SAT 98
[2023-09-25 06:40] LABS: ALBUMIN 3.2 G/DL (3.2-5.2); ALKALINE PHOSPHATASE 70 U/L (46-116); ALT/SGPT 26 U/L (7.0-40); AST/SGOT < 8 U/L (<34); BILIRUBIN,TOTAL 0.3 MG/DL (0.3-1.2); BLOOD UREA NITROGEN 21 MG/DL (9-23); CARBON DIOXIDE LEVEL 24 MMOL/L (20-31); CHLORIDE LEVEL 106 MMOL/L (98-107); CREATININE FOR GFR 0.89 MG/DL (0.70-1.30); GLOMERULAR FILTRATION RATE > 60.0 (>60); GLUCOSE, FASTING 155 MG/DL (60-100); POTASSIUM SERUM 4.5 MMOL/L (3.5-5.1); SODIUM LEVEL 137 MMOL/L (136-145); TOTAL PROTEIN 7.2 G/DL (5.7-8.2)
[2023-09-25 08:16] VITALS: BP 140/88
[2023-09-25] MEDS ORDERED: FLUT12AE2 INH (12:03)
[2023-09-25] MEDS ORDERED: AMLO1TAB25 PO (12:03)
[2023-09-25] MEDS ORDERED: MONT10TA97 PO (12:03)
[2023-09-25] MEDS ORDERED: OMEP-173 PO (12:03)
[2023-09-25] MEDS ORDERED: PRED50TA PO (12:03)
[2023-09-25] MEDS ORDERED: AZIT-12 PO (12:03)
[2023-09-25] MEDS ORDERED: CEFD300CAP PO (12:03)
[2023-09-25] MEDS ORDERED: MUCI600T31 PO (12:03)
[2023-09-25] MEDS ORDERED: ELIQ5TAB PO (12:03)
[2023-09-25] MEDS ORDERED: SUCR1ORA PO (12:03)
[2023-09-25] MEDS ORDERED: LEVA1.25 INH (12:03)
[2023-09-26] MEDS ORDERED: predniSONE 50 MG TAB PO SCH (09:00)
[2023-09-27 12:29] LABS: DRVV SCREEN 45.6 SECONDS; PTT LUPUS TYPE ANTICOAG SCREEN 1.14 (0-1.20)
[2023-09-27] MEDS ORDERED: APIXABAN 5 MG TAB (ELIQUIS) PO SCH (21:00)
== END 2023-09-25 13:48 | disposition hospice, home (50) | DRG 134 ==
LOC: EDBD 11:35 → M ED 11:35 → M ED INP 15:41 → M PCU 17:50 → M MSPAV 09-24 20:40
PROVIDERS: ADMIT General Practice; ATTEND Hospitalist
PROC: B246ZZZ Ultrasonography of Right and Left Heart (ICD-10-PCS; principal; 2023-09-24)
DX: I26.99 Other pulmonary embolism without acute cor pulmonale (principal); I27.20 Pulmonary hypertension, unspecified; Z68.43 Body mass index [BMI] 50.0-59.9, adult; E66.01 Morbid (severe) obesity due to excess calories; J45.901 Unspecified asthma with (acute) exacerbation; K76.0 Fatty (change of) liver, not elsewhere classified; G47.33 Obstructive sleep apnea (adult) (pediatric); M10.9 Gout, unspecified; N20.0 Calculus of kidney; I10 Essential (primary) hypertension; F41.9 Anxiety disorder, unspecified; F32.A Depression, unspecified; J02.9 Acute pharyngitis, unspecified; Z79.51 Long term (current) use of inhaled steroids

== ENCOUNTER 2023-10-03 14:28 | Emergency (ER) | payer MEDICAID, OTHER ==
[~2023-10-03 14:28] MED LIST changes: +AMLO1TAB25 PO; +AZIT-12 PO; +CEFD300CAP PO; +ELIQ5TAB PO; +FLUT12AE2 INH; +LEVA1.25 INH; +MONT10TA97 PO; +MUCI600T31 PO; +OMEP-173 PO; +PRED50TA PO; +SUCR1ORA PO
== END 2023-10-03 14:52 | disposition left against medical advice (07) ==
LOC: M ED 14:28
DX: Z53.21 Procedure and treatment not carried out due to patient leaving prior to being seen by health care provider (principal)

== ENCOUNTER → 2024-02-26 | Outpatient (REF) | payer OTHER ==
[~2024-02-26] MED LIST changes: +ONDA-282 PO; -ONDA4TAB6 PO
[2024-02-26 16:32] LABS: BASO % 0.3 % (0.0-1.0); EOS # 0.5 10^3/uL (0.0-0.5); EOS % 3.9 % (0.0-3.0); HEMATOCRIT 42.3 % (42.0-52.0); HEMOGLOBIN 13.1 g/dl (13.5-17.5); LYMPH # 2.1 10^3/uL (1.5-5.0); LYMPH % 17.5 % (24.0-44.0); MEAN CORPUSCULAR HEMOGLOBIN 26.7 pg (27.0-33.0); MEAN CORPUSCULAR VOLUME 86.2 fl (80.0-96.0); MONO # 1.3 10^3/uL (0.0-0.8); MONO % 10.4 % (2.0-8.0); NEUTROPHILS # 8.2 10^3/uL (1.5-8.5); NEUTROPHILS % 67.7 % (36.0-66.0); PLATELET COUNT, AUTOMATED 356 10^3/uL (150-450); RED BLOOD COUNT 4.91 10^6/uL (4.30-6.10); WHITE BLOOD COUNT 12.1 10^3/uL (4.0-10.0)
[2024-02-26 16:39] LABS: ALBUMIN 3.7 G/DL (3.2-5.2); ALKALINE PHOSPHATASE 92 U/L (46-116); ALT/SGPT 25 U/L (7.0-40); AST/SGOT 11 U/L (<34); BILIRUBIN,TOTAL 0.2 MG/DL (0.3-1.2); BLOOD UREA NITROGEN 11 MG/DL (9-23); CARBON DIOXIDE LEVEL 28 MMOL/L (20-31); CHLORIDE LEVEL 104 MMOL/L (98-107); CHOLESTEROL LEVEL 172 MG/DL (<200); CHOLESTEROL RISK RATIO 6.99 (<5); CREATININE FOR GFR 0.97 MG/DL (0.70-1.30); GLOMERULAR FILTRATION RATE > 60.0 (>60); GLUCOSE, FASTING 90 MG/DL (60-100); HDL CHOLESTEROL 24.6 MG/DL (>40); LDL CHOLESTEROL 118.6 MG/DL (<100); NON-HDL-C 147.4 MG/DL; SODIUM LEVEL 136 MMOL/L (136-145); TOTAL PROTEIN 8.4 G/DL (5.7-8.2); TRIGLYCERIDES LEVEL 144 MG/DL (<150)
[2024-02-26 16:41] LABS: THYROID STIMULATING HORMONE 2.648 uIU/ML (0.55-4.78)
[2024-02-26 16:43] LABS: URIC ACID 10.7 MG/DL (3.7-9.2)
[2024-02-26 16:52] LABS: HEMOGLOBIN A1c 5.7 % (4.0-6.0)
== END ==
LOC: M LAB REF 16:07
PROVIDERS: ATTEND Nurse Practitioner Family
DX: E66.01 Morbid (severe) obesity due to excess calories (principal); M10.9 Gout, unspecified